=== PATIENT | female | born 1925 | race Caucasian/White ===

== ENCOUNTER → 2016-07-20 | Outpatient (CLI) | payer MEDICARE, BC ==
[~2016-07-20] MED LIST: ADVIL 200MG TA200 MG PO; ALLOPURINOL100 MG PO; ASPIRIN E.C. 8181 MG; ATORVASTATIN; BENAZEPRIL; BYSTOLIC5 MG; FLEXERIL 1010 MG/TAB PO; FLEXERIL5 MG PO; LEVAQUIN 5500 MG/TAB PO; LORTAB 5/500 501 TAB; LOTENSIN HCT 201 TAB; PERCOCET 325 MG1 TA2 PO; PHOS LO; PREDNISONE20 MG PO; [UNRECOGNIZED DRUG - REMARK]; vit B 12
== END ==
LOC: MC.RAD 09:52
DX: Z12.31 Encounter for screening mammogram for malignant neoplasm of breast (principal); R92.1 Mammographic calcification found on diagnostic imaging of breast; E78.5 Hyperlipidemia, unspecified

== ENCOUNTER 2017-07-04 17:42 | Inpatient (IN) | payer MEDICARE, BC ==
[~2017-07-04] VITALS: Ht 177.8 cm; Wt 84.5 kg
[~2017-07-04 17:42] MED LIST changes: -ALLOPURINOL100 MG PO; +CARDIZEM CD 12120 MG PO; +CORDARONE200 MG/TAB PO; +ELIQUIS 2.5 PO; +K-DUR 10 MEQ T10 MEQ PO; +LIPITOR 10MG10 MG PO; +MOTRIN 800800 MG/TAB PO; +NORCO 325 MG-51 TAB PO; +OS-CAL 500 + D1 TAB; +PACERONE400 MG PO; +PRILOSEC 20MG20 MG PO; +ZYLOPRIM 100MG100 MG PO
[2017-07-04 19:20] LABS: BASO # 0.1 (0.0-0.2); BASO % 0.4 % (0.0-2.0); EOS # 0.1 (0.0-0.7); EOS % 0.8 % (0-4.0); GRAN # 9.5 (1.4-6.5); GRAN % 84.4 % (42.2-75.2); HEMATOCRIT 35.4 % (37.0-47.0); HEMOGLOBIN 11.3 g/dl (12.5-16.0); LYMPH # 0.8 (1.2-3.4); LYMPH % 7.4 % (20.0-51.0); MEAN CELL VOLUME 99 fl (80.0-100.0); MEAN CORPUSCULAR HEMOGLOBIN 32 pg (27.0-31.0); MEAN CORPUSCULAR HGB CONC 32 g/dl (33.0-37.0); MEAN PLATELET VOLUME 9.7 fl (7.4-10.4); MONO # 0.7 (0.1-0.6); MONO % 6.4 % (1.7-9.3); PLATELET COUNT 271 K/mm3 (130-400); RED BLOOD COUNT 3.56 M/mm3 (4.10-5.30); REDCELL DISTRIBUTION WIDTH-CV 13.2 % (11.5-14.5)
[2017-07-04 19:29] LABS: COLLECTION METHOD CATHETER
[2017-07-04 19:36] LABS: PH 6 (5-8); SQUAMOUS EPITHELIAL 0-2 /hpf; URINE APPEARANCE Clear; URINE BACTERIA Rare /hpf; URINE BILIRUBIN Negative (NEGATIVE); URINE BLOOD Negative (NEGATIVE); URINE COLOR Yellow; URINE GLUCOSE Negative (NEGATIVE); URINE KETONE Negative (NEGATIVE); URINE LEUKOCYTE ESTERASE Negative (NEGATIVE); URINE NITRATE Negative (NEGATIVE); URINE PROTEIN(semi-quant) Negative (NEGATIVE); URINE RBC 0-2 /hpf
[2017-07-04 19:37] LABS: ALANINE AMINOTRANSFERASE 43 U/L (9-52); ALBUMIN 4.2 gm/dL (3.5-5.0); ALKALINE PHOSPHATASE 136 U/L (50-136); ANION GAP 11 mmol/L (7-16); AST,SGOT 38 U/L (15-37); BILIRUBIN,TOTAL 0.9 mg/dL (0.0-1.0); BLOOD UREA NITROGEN 39 mg/dL (7-17); CARBON DIOXIDE 22 mmol/L (22-30); CHLORIDE 104 mmol/L (98-107); CREATININE, serum 1.88 mg/dL (0.52-1.25); GLUCOSE 161 mg/dL (74-106); POTASSIUM 4.4 mmol/L (3.4-5.0); SODIUM 136 mmol/L (137-145); TOTAL PROTEIN 7.2 gm/dL (6.4-8.2)
[2017-07-04 19:47] LABS: TROPONIN-I < 0.012 ng/mL (0.000-0.034)
[2017-07-04 22:01] VITALS: BP 145/52; PULSE 91; TEMP 97.8
[2017-07-04] MEDS ORDERED: NEURONTIN300 MG/CAP PO (22:17)
[2017-07-04] MEDS ORDERED: LOTENSIN HCT 101 TAB PO (22:22)
[2017-07-04] MEDS ORDERED: MOTRIN 800800 MG/TAB PO (22:23)
[2017-07-04] MEDS ORDERED: SODIUM BICARBO650 MG PO (22:26)
[2017-07-04 23:37] VITALS: BP 150/65; PULSE 84; TEMP 98.4
[2017-07-04 23:49] VITALS: BP 145/52; PULSE 91; TEMP 97.9
[2017-07-05 04:07] VITALS: BP 107/41; PULSE 80; TEMP 98.1
[2017-07-05 06:54] LABS: MEAN CELL VOLUME 101 fl (80.0-100.0); MEAN CORPUSCULAR HGB CONC 32 g/dl (33.0-37.0); MEAN PLATELET VOLUME 9.8 fl (7.4-10.4); PLATELET COUNT 278 K/mm3 (130-400); RED BLOOD COUNT 3.16 M/mm3 (4.10-5.30); REDCELL DISTRIBUTION WIDTH-CV 13.2 % (11.5-14.5)
[2017-07-05 06:56] LABS: HEMATOCRIT 31.9 % (37.0-47.0); HEMOGLOBIN 10.1 g/dl (12.5-16.0); MEAN CORPUSCULAR HEMOGLOBIN 32 pg (27.0-31.0)
[2017-07-05 08:23] VITALS: BP 132/49; PULSE 87; TEMP 98.1
[2017-07-05 11:33] VITALS: BP 105/51; PULSE 83; TEMP 98.5
[2017-07-05 15:35] VITALS: BP 135/56; PULSE 92; TEMP 97.6
[2017-07-05 19:10] VITALS: BP 145/51; PULSE 108; TEMP 98.2
[2017-07-05 23:26] VITALS: BP 134/54; PULSE 97; TEMP 98.1
[2017-07-06 03:42] VITALS: BP 120/58; PULSE 84; TEMP 97.6
[2017-07-06 06:56] LABS: HEMATOCRIT 29.8 % (37.0-47.0); HEMOGLOBIN 9.6 g/dl (12.5-16.0)
[2017-07-06 07:53] VITALS: BP 150/60; PULSE 88; TEMP 98.5
[2017-07-06 11:36] VITALS: BP 147/55; PULSE 78; TEMP 98.5
[2017-07-06 16:25] VITALS: BP 142/50; PULSE 70; TEMP 98.3
[2017-07-06 19:55] VITALS: BP 151/54; PULSE 93; TEMP 98.4
[2017-07-06 23:01] VITALS: BP 152/54; PULSE 97; TEMP 98.5
[2017-07-07] VITALS (7 sets, daily range): BP systolic 107–147; BP diastolic 44–55; PULSE 80–97; TEMP 98.2–98.7
[2017-07-07 06:54] LABS: HEMATOCRIT 28.4 % (37.0-47.0); HEMOGLOBIN 9.3 g/dl (12.5-16.0)
[2017-07-08 03:51] VITALS: BP 132/54; PULSE 88; TEMP 98
[2017-07-08 06:40] LABS: HEMATOCRIT 30.7 % (37.0-47.0); HEMOGLOBIN 10.2 g/dl (12.5-16.0)
[2017-07-08] MEDS ORDERED: Remove Patch TD (07:09)
[2017-07-08] MEDS ORDERED: OMNICEF 300MG300 MG PO (07:09)
[2017-07-08] MEDS ORDERED: LIDODERM 5% PATC1 EA TP (07:09)
[2017-07-08] MEDS ORDERED: NORCO 325 MG-51 TAB PO (07:09)
[2017-07-08 07:43] VITALS: BP 138/53; PULSE 82; TEMP 98.1
[2017-07-08 09:29] VITALS: BP 138/53; PULSE 82; TEMP 98.1
== END 2017-07-08 10:00 | DRG 200 ==
LOC: COL.ER 17:42 → MEDICAL 20:28
PROVIDERS: Emergency Medicine; Surgery
DX: S27.0XXA Traumatic pneumothorax, initial encounter (principal); S22.41XA Multiple fractures of ribs, right side, initial encounter for closed fracture; N39.0 Urinary tract infection, site not specified; W18.30XA Fall on same level, unspecified, initial encounter; I48.91 Unspecified atrial fibrillation; T79.7XXA Traumatic subcutaneous emphysema, initial encounter; I10 Essential (primary) hypertension; B96.20 Unspecified Escherichia coli [E. coli] as the cause of diseases classified elsewhere
CPT/HCPCS: OP; A9284; G0378; G8978-GP; G8979-GP; G8987-GO; G8988-GO; J2270; J2405; J7030

== ENCOUNTER 2017-07-22 19:03 | Emergency (ER) | payer MEDICARE, BC ==
[~2017-07-22] VITALS: Ht 177.8 cm; Wt 82.3 kg
[~2017-07-22 19:03] MED LIST changes: -ACULAR 10 ML10 ML OU; -MILK OF MA400 MG/52; -TYLENOL 325MG325 MG PO
[2017-07-22 19:07] VITALS: BP 122/90; PULSE 91; TEMP 98.9
[2017-07-22 20:15] LABS: ARTERIAL BLD GAS O2 SATURATION 87.4 % (92-100); ARTERIAL BLD GAS TCO2 CT 25.1; ARTERIAL BLOOD GAS BASE EXCESS -1.3 (-2-2); ARTERIAL BLOOD GAS HCO3 23.8 meq/L (22-26); ARTERIAL BLOOD GAS PCO2 41.5 mmHg (35-45); ARTERIAL BLOOD GAS PO2 56.9 mmHg (80-100); ARTERIAL BLOOD GAS pH 7.38 (7.35-7.45)
[2017-07-22] MEDS ORDERED: SODIUM BICARBO650 MG PO (20:59)
[2017-07-22] MEDS ORDERED: MILK OF MA400 MG/52 (21:01)
[2017-07-22] MEDS ORDERED: TYLENOL 325MG325 MG PO (21:02)
[2017-07-22] MEDS ORDERED: ACULAR 10 ML10 ML OU (21:02)
== END 2017-07-22 21:23 ==
LOC: COL.ER 19:03
PROVIDERS: Emergency Medicine
DX: R42 Dizziness and giddiness (principal); Z79.01 Long term (current) use of anticoagulants

== ENCOUNTER → 2017-07-22 | Outpatient (REF) ==
[~2017-07-22] MED LIST changes: +ACULAR 10 ML10 ML OU; +LIDODERM 5% PATC1 EA TP; +LOTENSIN HCT 101 TAB PO; +MILK OF MA400 MG/52; +NEURONTIN300 MG/CAP PO; +OMNICEF 300MG300 MG PO; +Remove Patch TD; +SODIUM BICARBO650 MG PO; +TYLENOL 325MG325 MG PO
[2017-07-22 15:32] LABS: BASO # 0.1 (0.0-0.2); BASO % 0.8 % (0.0-2.0); EOS # 0.2 (0.0-0.7); EOS % 1.9 % (0-4.0); GRAN # 7.4 (1.4-6.5); GRAN % 78.7 % (42.2-75.2); HEMATOCRIT 30.3 % (37.0-47.0); HEMOGLOBIN 9.7 g/dl (12.5-16.0); LYMPH # 0.9 (1.2-3.4); LYMPH % 9.8 % (20.0-51.0); MEAN CELL VOLUME 100 fl (80.0-100.0); MEAN CORPUSCULAR HEMOGLOBIN 32 pg (27.0-31.0); MEAN CORPUSCULAR HGB CONC 32 g/dl (33.0-37.0); MEAN PLATELET VOLUME 9.6 fl (7.4-10.4); MONO # 0.8 (0.1-0.6); MONO % 8.3 % (1.7-9.3); PLATELET COUNT 318 K/mm3 (130-400); RED BLOOD COUNT 3.02 M/mm3 (4.10-5.30); REDCELL DISTRIBUTION WIDTH-CV 13.7 % (11.5-14.5)
[2017-07-22 16:15] LABS: ALBUMIN 3.2 gm/dL (3.5-5.0); BILIRUBIN,TOTAL 0.5 mg/dL (0.0-1.0); CALCIUM 8.5 mg/dL (8.4-10.2); CREATININE, serum 2.2 mg/dL (0.52-1.25); POTASSIUM 5.5 mmol/L (3.4-5.0); TOTAL PROTEIN 5.9 gm/dL (6.4-8.2)
== END ==
LOC: ZLAB.STJ 15:21
DX: I10 Essential (primary) hypertension (principal)

== ENCOUNTER → 2017-07-23 | Outpatient (REF) ==
[~2017-07-23] MED LIST changes: +ACULAR 10 ML10 ML OU; +MILK OF MA400 MG/52; +TYLENOL 325MG325 MG PO
[2017-07-23 11:08] LABS: HEMATOCRIT 34.5 % (37.0-47.0); HEMOGLOBIN 11.1 g/dl (12.5-16.0)
== END ==
LOC: ZLAB.STJ 11:02
PROVIDERS: Emergency Medicine
DX: I48.91 Unspecified atrial fibrillation (principal)

== ENCOUNTER → 2017-08-26 | Outpatient (CLI) | payer MEDICARE, BC | LOC: COL.VAS 13:39 | DX: R60.0 Localized edema (principal) ==

== ENCOUNTER → 2017-08-29 | Outpatient (CLI) | payer MEDICARE, BC | LOC: COL.PUL 08-25 13:30 | DX: R09.02 Hypoxemia (principal) ==